=== PATIENT | male | born 1995 | race Caucasian/White ===

== ENCOUNTER 2017-10-28 19:05 | Emergency (ER) | payer OTHER ==
[~2017-10-28] VITALS: Ht 175.3 cm; Wt 102.0 kg
--- NOTE | 2017-10-28 21:06 | PD ---
HPI Chief Complaint: Psychiatric Symptoms Time Seen by Provider: 19:37 Travel History International Travel<30 days: No Contact w/Intl Traveler<30days: No Traveled to known affect area: No History of Present Illness HPI 21-year-old white male presents emergency department under Souza act by PD. According to the Souza act the patient has been acting out. Mother was concerned that he may have bipolar disorder. He just broke up with his girlfriend, lost his best friend and lost his job. The patient here denies any suicidal ideation. No toxic ingestions. He does admit to alcohol on occasion. No drugs. No medical complaints. He states he was supposed to be going outside to green party with his friends [facility] Past Medical History Medical History: Denies Significant Hx Tetanus Vaccination: < 5 Years Past Surgical History Surgical History: No Previous Surgery Social History Alcohol Use: Yes Tobacco Use: No Substance Use: No Review of Systems General / Constitutional: No: Fever Eyes: No: Visual changes HENT: No: Headaches Cardiovascular: No: Chest Pain or Discomfort Respiratory: No: Shortness of Breath Gastrointestinal: No: Abdominal Pain Genitourinary: No: Dysuria Musculoskeletal: No: Pain Skin: No Rash Neurologic: No: Weakness Psychiatric: Positive: Mood Disorder, No: Anxiety, Depression, Suicidal Ideations, Substance Abuse, Homicidal Ideation Endocrine: No: Polydipsia Hematologic/Lymphatic: No: Easy Bruising Physical Exam Narrative GENERAL: Well-nourished, well-developed patient. SKIN: Warm and dry. HEAD: Normocephalic and atraumatic. EYES: No scleral icterus. No injection or drainage. ENT: No nasal drainage noted. Mucous membranes pink. Airway patent. NECK: Supple, trachea midline. Moves head freely without obvious discomfort. CARDIOVASCULAR: Regular rate and rhythm without murmurs, gallops, or rubs. RESPIRATORY: Breath sounds equal bilaterally. No accessory muscle use. GASTROINTESTINAL: Abdomen soft, non-tender, nondistended. EXTREMITIES: No cyanosis or edema. BACK: Nontender without obvious deformity. No CVA tenderness. NEURO: Patient is alert and oriented. no sensorimotor deficits. Nonfocal. Normal speech. PSYCH: No delusions. No auditory or visual hallucinations. Data Data Orders Orders Psych Screen (10/28/17 19:48) MDM Medical Decision Making Medical Screen Exam Complete: Yes Emergency Medical Condition: Yes Medical Record Reviewed: Yes Differential Diagnosis MDM: High Differential diagnoses: Schizophrenia, schizoaffective disorder, bipolar, anxiety, depression, adjustment reaction, mood disorder NOS, ODD, depressive disorder NOS, dementia, dementia with agitation, psychosis NOS, substance induced mood disorder, DMDD, Asperger syndrome, infection,electrolyte abnormality, malingering. Narrative Course Mental health screening discussed with the patient. Psychiatric screen ordered. The patient has been medically cleared. This is medical clearance for psychiatric admission Diagnosis Primary Impression: Medical clearance for psychiatric admission Patient Instructions: General Instructions Condition: Stable Juno Joseph Oct 28, 2017 21:06
[2017-10-28 22:23] LABS: AUTOMATED NEUTROPHIL # 4.4 TH/MM3 (1.8-7.7); BASOPHIL # 0.1 TH/MM3 (0-0.2); BASOPHIL % 0.7 % (0.0-2.0); EOSINOPHIL # 0.2 TH/MM3 (0-0.4); EOSINOPHIL % 2.2 % (0.0-4.0); HEMATOCRIT 41.9 % (39.0-51.0); HEMOGLOBIN 14.7 GM/DL (13.0-17.0); LYMPH % 31.9 % (9.0-44.0); LYMPHOCYTE # 2.6 TH/MM3 (1.0-4.8); MEAN CELL VOLUME 93.5 FL (80.0-100.0); MEAN CORPUSCULAR HEMOGLOBIN 32.9 PG (27.0-34.0); MEAN CORPUSCULAR HGB CONC 35.1 % (32.0-36.0); MEAN PLATELET VOLUME 7.7 FL (7.0-11.0); MONO % 10.4 % (0.0-8.0); MONOCYTE # 0.8 TH/MM3 (0-0.9); NEUT % 54.8 % (16.0-70.0); PLATELET COUNT 256 TH/MM3 (150-450); RED BLOOD COUNT 4.48 MIL/MM3 (4.50-5.90); RED CELL DISTRIBUTION WIDTH 12.4 % (11.6-17.2)
[2017-10-28 22:35] LABS: ALT (GPT) 23 U/L (9-52); AST (GOT) 16 U/L (15-39); BICARBONATE 30.4 MEQ/L (21.0-32.0); BLOOD UREA NITROGEN 9 MG/DL (7-18); CALCIUM 8.8 MG/DL (8.5-10.1); CHLORIDE 103 MEQ/L (98-107); CREATININE 0.93 MG/DL (0.60-1.30); GLOMERULAR FILTRATION RATE 105 ML/MIN (>89); GLUCOSE,RANDOM 98 MG/DL (74-106); SODIUM (NA) 139 MEQ/L (136-145)
[2017-10-28 22:45] LABS: ALKALINE PHOSPHATASE 36 U/L (45-117); TOTAL BILIRUBIN ADULT 0.4 MG/DL (0.2-1.0)
[2017-10-29 02:34] VITALS: BP 127/65; PULSE 91; RESP 16; O2SAT 100
[2017-10-29 10:31] VITALS: BP 148/74; PULSE 90; RESP 18; O2SAT 96
--- NOTE | 2017-10-29 11:30 | PD ---
Physical Exam Time Seen by Provider: 11:[address] Ch has evaluated the patient, lifted Souza act and cleared the patient for discharge. Data Data Last Documented VS Vital Signs Date Time Temp Pulse Resp B/P (MAP) Pulse Ox O2 Delivery O2 Flow Rate FiO2 10/29/17 10:31 90 18 148/74 (98) 96 Room Air Orders Orders Psych Screen (10/28/17 19:48) Complete Blood Count With Diff (10/28/17 21:06) Comprehensive Metabolic Panel (10/28/17 21:06) Thyroid Stimulating Hormone (10/28/17 21:06) Drug Screen, Random Urine (10/28/17 21:06) Alcohol (Ethanol) (10/28/17 21:06) Diet Regular Basic (10/29/17 Breakfast) Diet Regular Basic (10/29/17 Lunch) Ed Discharge Order (10/29/17 11:30) Labs Laboratory Tests Test 10/28/17 21:45 10/29/17 02:20 White Blood Count 8.0 TH/MM3 Red Blood Count 4.48 MIL/MM3 Hemoglobin 14.7 GM/DL Hematocrit 41.9 % Mean Corpuscular Volume 93.5 FL Mean Corpuscular Hemoglobin 32.9 PG Mean Corpuscular Hemoglobin Concent 35.1 % Red Cell Distribution Width 12.4 % Platelet Count 256 TH/MM3 Mean Platelet Volume 7.7 FL Neutrophils (%) (Auto) 54.8 % Lymphocytes (%) (Auto) 31.9 % Monocytes (%) (Auto) 10.4 % Eosinophils (%) (Auto) 2.2 % Basophils (%) (Auto) 0.7 % Neutrophils # (Auto) 4.4 TH/MM3 Lymphocytes # (Auto) 2.6 TH/MM3 Monocytes # (Auto) 0.8 TH/MM3 Eosinophils # (Auto) 0.2 TH/MM3 Basophils # (Auto) 0.1 TH/MM3 CBC Comment DIFF FINAL Differential Comment Blood Urea Nitrogen 9 MG/DL Creatinine 0.93 MG/DL Random Glucose 98 MG/DL Total Protein 7.0 GM/DL Albumin 4.0 GM/DL Calcium Level 8.8 MG/DL Alkaline Phosphatase 36 U/L Aspartate Amino Transf (AST/SGOT) 16 U/L Alanine Aminotransferase (ALT/SGPT) 23 U/L Total Bilirubin 0.4 MG/DL Sodium Level 139 MEQ/L Potassium Level 3.6 MEQ/L Chloride Level 103 MEQ/L Carbon Dioxide Level 30.4 MEQ/L Anion Gap 6 MEQ/L Estimat Glomerular Filtration Rate 105 ML/MIN Thyroid Stimulating Hormone 3rd Gen 1.610 uIU/ML Ethyl Alcohol Level LESS THAN 3 MG/DL Urine Opiates Screen NEG Urine Barbiturates Screen NEG Urine Amphetamines Screen NEG Urine Benzodiazepines Screen NEG Urine Cocaine Screen NEG Urine Cannabinoids Screen NEG MDM Supervised Visit with EREN: No Narrative Course Dr. Ch has evaluated the patient, lifted Harley alvarenga and cleared the patient for discharge. The patient's mother is coming to pick him up. Patient contracts safety. Denies suicidal or homicidal ideations. Patient will be provided community resource packet to [facility] for follow-up. Has friends and family for support. Patient was medically cleared by alternate provider prior to psych screening. Patient has been evaluated by psychiatry and and is now cleared for discharge. Diagnosis Primary Impression: Adjustment disorder with depressed mood Referrals: [facility] (Out patient) [facility] Primary Care Physician Psychiatrist Marissa ALVARENGA Behavioral Patient Instructions: General Instructions, Mood Disorders (ED) Additional Instruction: Contract safety to your self and others Follow-up with psychiatry Follow-up with primary care provider Follow-up with Eyad Orellana Return to the emergency department immediately with worsening of symptoms Med/Other Pt SpecificInfo: No Change to Meds, No Meds Exist/No RX given Scripts No Active Prescriptions or Reported Meds Disposition: 01 DISCHARGE HOME Condition: Stable Princess Escamilla Oct 29, 2017 11:30
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
== END 2017-10-29 12:11 | disposition home or self-care (01) ==
LOC: NEDAMB 19:05 → NEPJ 10-29 12:11
DX: F43.21 Adjustment disorder with depressed mood (principal)
CPT/HCPCS: 80053; 80307; 84443; 85025; 99283